=== PATIENT | female | born 1975 | race Caucasian/White ===

== ENCOUNTER 2019-09-12 14:49 | Inpatient (IN) | payer MEDICAID ==
[~2019-09-12] VITALS: Ht 160 cm; Wt 65.3 kg
[2019-09-12 15:44] LABS: BASOPHILS # (AUTO) 0.1 /CMM (0.0-0.2); BASOPHILS % (AUTO) 0.6 % (0.0-2.0); EOSINOPHILS % (AUTO) 2.4 % (0.0-6.0); HEMATOCRIT 36 % (33-45); HEMOGLOBIN 11.8 g/dL (11.5-14.8); LYMPHOCYTES # (AUTO) 3.3 /CMM (0.8-4.8); LYMPHOCYTES % (AUTO) 31.6 % (20.0-44.0); MEAN CORPUSCULAR HGB CONC 33 g/dl (31.0-36.0); MEAN CORPUSCULAR VOLUME 94 fL (82-100); MONOCYTES # (AUTO) 0.7 /CMM (0.1-1.30); MONOCYTES % (AUTO) 6.4 % (2.0-12.0); NEUTROPHILS # (AUTO) 6.1 /CMM (1.8-8.9); PLATELET COUNT (AUTO) 399 /CMM (150-450); RED BLOOD CELL COUNT(AUTO) 3.88 MIL/uL (4.0-5.2); WHITE BLOOD COUNT (AUTO) 10.4 K/uL (4.3-11.0)
--- NOTE | 2019-09-12 15:48 | NUR ---
L SIDED CP, SOB, WEAKNESS X 3 DAYS. SEEN AT [facility] EARLIER. D/C HOME W/ PRESCRIPTION FOR ANTIBIOTICS. PT AAOX4, SEEN & EVAL'D BY DR. COBOS. PLACED ON ELECTROTHERAPIST, SR & NO ECTOPY NOTED. DENIES N/V, DIZZINESS, ARM/JAW/UPPER BACK PAIN @ THIS TIME. WILL CONT TO MONITOR.
[2019-09-12 15:52] LABS: CALCIUM, SERUM 7.8 mg/dL (8.5-10.1); CARBON DIOXIDE 27 mmol/L (21-32); CHLORIDE 103 mmol/L (98-107); CREATININE 0.7 mg/dL (0.6-1.3); GLUCOSE 94 mg/dL (74-106); POTASSIUM 4.1 mmol/L (3.5-5.1); SODIUM SERUM 139 mmol/L (136-145); UREA NITROGEN, BLOOD 10 mg/dL (7-18)
[2019-09-12] MEDS ORDERED: CT SWABBABLE VALVE TRANS SET 1 EA INFUS.SET MC ONE (16:37)
[2019-09-12] MEDS ORDERED: IOHEXOL-350 100 ML VIAL IV ONE (16:37)
[2019-09-12] MEDS ORDERED: IV NS 0.9% 250 ML IV ONE (16:38)
--- NOTE | 2019-09-12 17:30 | NUR ---
PT TO CT VIA [facility].
--- NOTE | 2019-09-12 20:17 | NUR ---
REPORT GIVEN TO SAEED GUADARRAMA FOR CYNTHIA.
[2019-09-12] MEDS ORDERED: ALBUTEROL HALF STRENGTH 1.25 MG/3 ML VIAL.NEB NEB PRN ×2 (20:30→23:00)
[2019-09-12] MEDS ORDERED: IPRATROPIUM NEB FS 0.5 MG/2.5 ML AMPUL.NEB NEB PRN ×2 (20:30→23:00)
[2019-09-12] MEDS ORDERED: methylPREDNISolone SOD SUCC 125 MG/2ML VIAL IV ONE (20:30)
[2019-09-12] MEDS ORDERED: methylPREDNISolone SOD SUCC 125 MG/2ML VIAL ONE (20:34)
[2019-09-12] MEDS ORDERED: ALBUTEROL FS 2.5 MG/3 ML VIAL.NEB ONE (20:45)
[2019-09-12] MEDS ORDERED: IPRATROPIUM NEB FS 0.5 MG/2.5 ML AMPUL.NEB ONE (20:45)
--- NOTE | 2019-09-12 20:49 | NUR ---
MEDICATED ORDERED, PT PANTERA WELL. PT GETTING BREATHING TX.
[2019-09-12] MEDS ORDERED: HYDROCODONE/APAP 5/325MG 1 EACH TABLET ONE (21:24)
[2019-09-12] MEDS ORDERED: HYDROCODONE/APAP 5/325MG 1 EACH TABLET PO PRN (21:30)
[2019-09-12] MEDS ORDERED: Z GUARD REMEDY 2 OZ OINT TP PRN (23:00)
[2019-09-12] MEDS ORDERED: ZOLPIDEM TARTRATE 5 MG TABLET PO PRN (23:00)
[2019-09-12] MEDS ORDERED: ACETAMINOPHEN 325 MG TABLET PO PRN (23:00)
[2019-09-12] MEDS ORDERED: MAGNESIUM HYDROXIDE 30 ML UDC PO PRN (23:00)
--- NOTE | 2019-09-12 23:28 | NUR ---
HYDRAULIC BULL RIVETER OPERATORTELEHEALTH DIRECTOR NOTES Received patient from ER via rney accompanied by ER staff. Admitted to Tele 323-2 due to R/O ACS, under the service of HERMAN Leggett. Assisted patient to bed, noted ambulatory with stable gait noted. Attached to O2 @ 3LPM, patient claimed having SOB, O2 saturation 98%. Patient claimed having chest pain at this time. Admission orders noted and carried out. Administered due meds as ordered. On tele monitor with NSR noted. Snacks provided per patient request. Kept on bed clean, dry and comfortable. Call light within easy reach. On fall and aspiration precautions. Will continue to monitor accordingly.
[2019-09-12] MEDS ORDERED: ASPIRIN 325 MG TABLET PO ONE (23:30)
[2019-09-12] MEDS: IV NS 0.9% 1,000 ML IV PRN (23:44)
[2019-09-12] MEDS: MORPHINE SULFATE INJ 2 MG/ML DISP.SYRIN IV PRN (23:45)
[2019-09-12] MEDS: ATORVASTATIN 40 MG TABLET PO SCH (23:51)
[2019-09-12] MEDS: LORAZEPAM 1 MG TABLET PO PRN (23:51)
[2019-09-13] MEDS ORDERED: LEVOFLOXACIN 500 MG /D5W 100ML 100 ML IV ONE (00:07)
[2019-09-13] MEDS: LEVOFLOXACIN 500 MG /D5W 100ML 500 MG in PREMIX 1 EA IV SCH ×2 (00:19→23:53)
[2019-09-13] MEDS: HYDROCODONE/APAP 5/325MG 1 EACH TABLET PO PRN ×3 (01:39→16:24)
[2019-09-13] MEDS ORDERED: LEVO100T9 PO (03:10)
[2019-09-13] MEDS: MORPHINE SULFATE INJ 2 MG/ML DISP.SYRIN IV PRN ×4 (03:59→20:26)
[2019-09-13] MEDS: MAG HYDROX/AL HYDROX/SIMETH 30 ML UDC PO PRN ×2 (04:29→17:30)
[2019-09-13] MEDS: methylPREDNISolone SOD SUCC 40 MG/ML VIAL IV SCH ×3 (04:29→21:52)
[2019-09-13 06:22] LABS: BASOPHILS % (AUTO) 0.1 % (0.0-2.0); HEMATOCRIT 38 % (33-45); HEMOGLOBIN 12.7 g/dL (11.5-14.8); LYMPHOCYTES # (AUTO) 0.6 /CMM (0.8-4.8); LYMPHOCYTES % (AUTO) 6.3 % (20.0-44.0); MEAN CORPUSCULAR HGB CONC 33 g/dl (31.0-36.0); MEAN CORPUSCULAR VOLUME 93 fL (82-100); MONOCYTES # (AUTO) 0.1 /CMM (0.1-1.30); MONOCYTES % (AUTO) 0.7 % (2.0-12.0); NEUTROPHILS # (AUTO) 9.6 /CMM (1.8-8.9); NEUTROPHILS % (AUTO) 92.9 % (43.0-81.0); PLATELET COUNT (AUTO) 453 /CMM (150-450); RED BLOOD CELL COUNT(AUTO) 4.07 MIL/uL (4.0-5.2); WHITE BLOOD COUNT (AUTO) 10.3 K/uL (4.3-11.0)
[2019-09-13] MEDS: LEVOTHYROXINE SODIUM 100 MCG TABLET PO SCH (06:51)
--- NOTE | 2019-09-13 06:55 | NUR ---
SET KEY DRIVER CLOSING NOTES Patient awake on bed, noted asleep for about 4 hrs within the shift. Patient medicated for pain, noted effective, patient is asking within the interval set. On tele monitor with NSR noted. On RA at this time, no SOB/respiratory distress noted. Medications administered as ordered, no ASE noted. All nursing needs attended. No new unusualities noted. Kept on bed clean, dry and comfortable. Call light within easy reach. Endorsed to the next shift.
[2019-09-13 06:58] LABS: CALCIUM, SERUM 8.6 mg/dL (8.5-10.1); CREATININE 0.6 mg/dL (0.6-1.3); MAGNESIUM 1.8 mg/dL (1.8-2.4); PHOSPHORUS 1.5 mg/dL (2.5-4.9); POTASSIUM 4.3 mmol/L (3.5-5.1)
[2019-09-13 08:00] VITALS: BP 144/84
[2019-09-13] MEDS: ONDANSETRON HCL/PF 4 MG/2 ML VIAL IVP PRN ×2 (09:17→20:44)
[2019-09-13] MEDS: ASPIRIN 81 MG TAB.CHEW PO SCH (09:17)
[2019-09-13] MEDS: LORAZEPAM 1 MG TABLET PO PRN ×2 (09:17→21:52)
[2019-09-13] MEDS: KETOROLAC TROMETHAMINE INJ 30 MG/ML VIAL IV PRN (11:04)
--- NOTE | 2019-09-13 11:09 | NUR ---
Social service consult requested by Dr. Leggett for possible homelessness. Per chart review, Pt. is a 43-year-old Female, with history of thyroid cancer and routine tobacco abuse, who presented for evaluation of persisting, moderate shortness of breath and chest pain that is exacerbated by deep breathing and coughing for over 1 week. INTEGRATED PROGRAM TEACHER met with the pt. bedside. Pt. is alert and oriented x 4. Pt is pleasant and cooperative with INTEGRATED PROGRAM TEACHER during the assessment. Pt' s mood is congruent. Pt. informed INTEGRATED PROGRAM TEACHER she is homeless, as it terms of she has no home personally, however she has been and is able to stay with her daughters. Pt's was for 29 years but her tragically 5 months ago. Pt. became tearful. INTEGRATED PROGRAM TEACHER provided active listening and supportive counseling to the pt. Pt. stated, she gets anxious every now and then since her passed. Pt. denies any suicidal ideations, intent, plan or means. Pt. has no source of income and is financially supported by her children. Pt. has four children who are very supportive. Pt. also has 4 grand kids. 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 Pt. denies any drug or alcohol use. Pt. smokes a pack of cigarettes per day. INTEGRATED PROGRAM TEACHER encouraged pt. to apply for General Relief and food stamps and provided with pt. with list of [employer] offices in [facility]. One of pt's daughters will berry picker the pt upon discharge. No other social service needs are requested at this time. INTEGRATED PROGRAM TEACHER updated GER Jimenez with aforementioned information.
[2019-09-13] MEDS ORDERED: K PHOS NEUTRAL 250 MG TABLET PO ONE (13:00)
[2019-09-13 16:00] VITALS: BP 137/88
[2019-09-13 18:00] VITALS: BP 144/84
--- NOTE | 2019-09-13 18:45 | NUR ---
Patient resting in bed, remains on room air with saturation above 98-100%. VS are stable,afebrile. D/c from tele to MS. PRN pain meds administrated as needed. Patient kept comfortable . Safety precautions initiated. Bed in low and locked position , side rail up x2, call light within reach.
--- NOTE | 2019-09-13 19:10 | NUR ---
RN PM OPENING NOTE. bedside report recieved from mohit quintanilla. Patient resting in bed, remains on room air with respirations are even and unlabored. reviewed pain management plan with patient patient is still complaining of left upper chest pain rated 9/10. patient face is expressionless with occasional grimace laying in bed with no signs of perspiration, speaking is even and natural. Safety precautions in place. Bed in low and locked position, side rail up x2, call light within reach. will cont to monitor.
[2019-09-13 20:00] VITALS: BP 125/90
--- NOTE | 2019-09-13 20:45 | NUR ---
MS RN NOTE: HELP COVER DANDRE TIPTON, PATIENT COMPLAINS OF ABDOMINAL PAIN 9/10, MORPHINE 2MG IV GIVEN PER MD ORDER. PATIENT ALSO COMPLAINS OF NAUSEA /VOMITING, ZOFRAN 4MG IV GIVEN PER MD ORDER. WILL CONTINUE TO MONITOR.
--- NOTE | 2019-09-13 21:50 | NUR ---
ativan prn patient requesting ativan prn for anxiety. ativan 1 mg administered per md orders. patient reports that she had emesis x1 but nausea has improved sincegiven the zofran. patient still reporting cp to left side upper chest
[2019-09-13] MEDS: ATORVASTATIN 40 MG TABLET PO SCH (21:52)
[2019-09-14] MEDS: MORPHINE SULFATE INJ 2 MG/ML DISP.SYRIN IV PRN ×2 (01:55→06:23)
[2019-09-14] MEDS: IV NS 0.9% 1,000 ML IV PRN (01:59)
[2019-09-14] MEDS: KETOROLAC TROMETHAMINE INJ 30 MG/ML VIAL IV PRN (04:29)
[2019-09-14] MEDS: methylPREDNISolone SOD SUCC 40 MG/ML VIAL IV SCH (04:34)
--- NOTE | 2019-09-14 06:15 | NUR ---
RN CLOSING NOTES PATIENT IN BED WITH SRX2, IV NS INFUSING TO LEFT FA22 GAUGE WITH NO S/S OF INFILTRATION. ALL SCHEDULED MEDICATIONS ADMINISTERED. PATIENT RECENTLY MEDICATED FOR LCW PAIN 8 WITH MORPHINE PER PATIENT REQUEST ORDERED. BED DOWN AND LOCKED AND CALL LIGHT IN REACH. VERBALIZED UNDERSTANDING TO CALL FOR ASSISTANCE IF NEEDED.
[2019-09-14] MEDS: LEVOTHYROXINE SODIUM 100 MCG TABLET PO SCH (06:27)
--- NOTE | 2019-09-14 07:49 | NUR ---
MS/RN Patient received Patient received from shift nurse manager. A/O X4, vital signs stable, continues to complain of 10/10 left sided chest pain, denies radiating of pain, morphine administered at 0630. Safety measurs in place, call light within reach. Will continue to monitor and ensure safety.
[2019-09-14 07:56] LABS: BASOPHILS % (AUTO) 0.1 % (0.0-2.0); HEMATOCRIT 39 % (33-45); HEMOGLOBIN 12.8 g/dL (11.5-14.8); LYMPHOCYTES # (AUTO) 0.9 /CMM (0.8-4.8); LYMPHOCYTES % (AUTO) 7.4 % (20.0-44.0); MEAN CORPUSCULAR HGB CONC 33 g/dl (31.0-36.0); MEAN CORPUSCULAR VOLUME 94 fL (82-100); MONOCYTES # (AUTO) 0.3 /CMM (0.1-1.30); MONOCYTES % (AUTO) 2.1 % (2.0-12.0); NEUTROPHILS # (AUTO) 10.9 /CMM (1.8-8.9); NEUTROPHILS % (AUTO) 90.4 % (43.0-81.0); PLATELET COUNT (AUTO) 449 /CMM (150-450); RED BLOOD CELL COUNT(AUTO) 4.17 MIL/uL (4.0-5.2); WHITE BLOOD COUNT (AUTO) 12.1 K/uL (4.3-11.0)
[2019-09-14 08:00] VITALS: BP 125/66
[2019-09-14] MEDS: ASPIRIN 81 MG TAB.CHEW PO SCH (08:12)
[2019-09-14] MEDS: HYDROCODONE/APAP 5/325MG 1 EACH TABLET PO PRN (08:13)
[2019-09-14] MEDS: LORAZEPAM 1 MG TABLET PO PRN (08:13)
[2019-09-14 08:20] LABS: CALCIUM, SERUM 8.5 mg/dL (8.5-10.1); CREATININE 0.6 mg/dL (0.6-1.3); MAGNESIUM 2.1 mg/dL (1.8-2.4); PHOSPHORUS 2.9 mg/dL (2.5-4.9); POTASSIUM 4.2 mmol/L (3.5-5.1)
[2019-09-14] MEDS: ONDANSETRON HCL/PF 4 MG/2 ML VIAL IVP PRN (09:23)
--- NOTE | 2019-09-14 11:00 | NUR ---
MS/RN S/B Ashley Roblero NURSE REVIEWER Seen by NURSE REVIEWER - patient to be discharged to home today with prescription to complete steriods and oral antibiotics.
[2019-09-14] MEDS ORDERED: METH4TAB3 PO (11:13)
[2019-09-14] MEDS ORDERED: LEVO500T75 PO (11:13)
[2019-09-14] MEDS ORDERED: ASPI-1169 PO (11:13)
[2019-09-14] MEDS ORDERED: ATOR40TA PO (11:13)
--- NOTE | 2019-09-14 11:30 | NUR ---
MS/RN Heplock Heplock removed.
--- NOTE | 2019-09-14 12:44 | NUR ---
MS/audiology director Patient discharged to home in stable condition. Heplock and name bands removed, all personal belongings returned to patient and accounted for on personal property list. Prescription given to patient for antibiotic and steroids. Educated as to what each medication was for, including possible side effects. Made aware of the importance of filling prescription as soon as possible to enable continuity of medications. Education given to patient regarding follow up with primary care doctor and cardiology rn, stated that she would by calling Dr Frankel's office later today to make appointment. Time allowed for all questions to be addressed. Escorted to main lobby by OFFICE SERVICES CLERK and daughter.
== END 2019-09-14 13:00 | disposition home or self-care (01) | DRG 178 ==
LOC: ER 14:50 → TELE 20:02 → MED 09-13 10:08
PROVIDERS: ADMIT Nurse Practitioner Acute Care; ATTEND Registered Nurse
DX: J15.6 Pneumonia due to other Gram-negative bacteria (principal); J44.1 Chronic obstructive pulmonary disease with (acute) exacerbation; I24.9 Acute ischemic heart disease, unspecified; J98.11 Atelectasis; J44.0 Chronic obstructive pulmonary disease with (acute) lower respiratory infection; J11.1 Influenza due to unidentified influenza virus with other respiratory manifestations; F41.9 Anxiety disorder, unspecified; I10 Essential (primary) hypertension; E89.0 Postprocedural hypothyroidism; E78.5 Hyperlipidemia, unspecified; F17.200 Nicotine dependence, unspecified, uncomplicated; Z85.850 Personal history of malignant neoplasm of thyroid; E27.9 Disorder of adrenal gland, unspecified; D47.3 Essential (hemorrhagic) thrombocythemia; G89.4 Chronic pain syndrome; Z76.5 Malingerer [conscious simulation]
CPT/HCPCS: 36415; 71045-TC; 80048-TC; 80061-TC; 83735-TC; 84100-TC; 84443-TC; 84484-TC; 85025-TC; 87081-TC; 92611-TC; 93307-TC; 97116-TC; 97530-TC; A4216; G0378; J1885; J1956; J2270; J2405; J2920; J2930; J7030; J7050; Q9967